=== PATIENT | male | born 2000 | race Caucasian/White ===

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

== ENCOUNTER 2021-06-12 18:34 | Emergency (ER) | payer OTHER ==
[2021-06-12 18:38] VITALS: BP 123/79; PULSE 79; TEMP 97.9; BMI 31.0
[2021-06-12] MEDS ORDERED: KETOROLAC TROMETHAMINE 30 MG/1 ML VIAL IM ONE (19:14)
[2021-06-12] MEDS ORDERED: KETOROLAC TROMETHAMINE 30 MG/1 ML VIAL ONE (19:18)
== END 2021-06-12 21:37 | disposition home or self-care (01) ==
LOC: JERFT 18:34
PROC: 3E0233Z Introduction of Anti-inflammatory into Muscle, Percutaneous Approach (ICD-10-PCS; principal; 2021-06-12)
DX: M25.561 Pain in right knee (principal)
CPT/HCPCS: 73560-TC-RT-FY; 99284-25